=== PATIENT | male | born 1990 | race Two or more races ===

== ENCOUNTER 2021-12-30 11:46 | Emergency (ER) | payer OTHER, SELFPAY ==
--- NOTE | ~2021-12-30 | XR_ITS ---
EXAMINATION: [id number] EXAM DATE: 12/30/2021 12:20 INDICATION: No known recent injury provided at this time. Pain of the cervical spine. TECHNIQUE: Cervical spine frontal, lateral, lateral swimmers, and open-mouth odontoid projections. There is no prior study for comparison. FINDINGS: There is no evidence of acute cervical fracture. The odontoid process is intact. Pre-de ns space is normal. Prevertebral soft tissue is normal. There are no soft tissue abnormalities iden tified. There is mild disc disease at C5-6. There is mild cervical arthropathy. No significant steno sis suspected. The vertebral bodies are aligned. IMPRESSION: Mild cervical spondylosis. Reviewed, dictated and finalized at location A. IMPRESSION: Mild cervical spondylosis.
[2021-12-30 11:55] VITALS: BP 129/84; PULSE 78; RESP 16; TEMP 36.4; O2SAT 100
--- NOTE | 2021-12-30 11:59 | ED.GENADULT ---
HPI - General Adult General Chief complaint: Neck Pain/Injury Stated complaint: Neck pain Time Seen by Provider: 12/30/21 11:59 Source: patient Mode of arrival: ambulatory Limitations: no limitations History of Present Illness HPI narrative: 31 y/o male presented for c/o posterior neck pain for months. Pain radiates to right scapula or left at times. Worse after exercising, looking at his for phone a long time, or studying. 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 Denies pain radiating to bilateral arms/hands, numbness, tingling or weakness of the extremities. Endorses 2 hours of left middle finger tingling yesterday, and base of skull tingling at times. Has taken one dose of ibuprofen which helped the symptoms. He also changed out his mattress 3 times and bought new pillows. Related Data Allergies Allergy/AdvReac Type Severity Reaction Status Date / Time No Known Allergies Allergy Verified 12/30/21 12:01 Review of Systems Review of Systems: CONSTITUTIONAL: Denies body aches, fever, chills EYES: Denies visual changes ENT: Denies rhinorrhea, congestion CARDIOVASCULAR: Denies chest pain, palpitations, or edema. RESPIRATORY: Denies cough or dyspnea. GASTROINTESTINAL: Denies abdominal pain, nausea, vomiting, or diarrhea. SKIN: Denies rash, itching, or wounds. MUSCULOSKELETAL: Reports neck pain NEUROLOGIC: Denies headache, numbness, tingling, or weakness. PSYCH: Denies depression or anxiety. All systems reviewed & are unremarkable except as noted in HPI and below PMFSH Comments At time of signature, I have reviewed and agree with nursing past medical, surgical, social and family history unless otherwise noted. Please see nursing chart for further information. There is no relevant family history pertinent to the presenting complaint Exam Narrative: GENERAL: Well-appearing, well-nourished, and in no acute distress. HEAD: Normocephalic, atraumatic. EYES: conjunctivae clear NECK: Supple. CHEST: Speaks in full sentences. No respiratory distress. HEART: Regular rate and rhythm. Normal and equal peripheral pulses. EXTREMITIES: BUEs normal strength and sensation, normal range of motion with flexion/extension/rotation at shoulders. No vertebral point tenderness. No open wounds, skin tenting, or obvious deformity; pulses palpable and equal bilaterally, skin warm, dry, pink. Capillary refill less than 3 seconds. SKIN: Warm, dry, no rash. NEURO: Alert and oriented x3. PSYCH: Normal mood and affect Course Course Emergency Course: Patient is aware of diagnosis, understands and agrees to treatment plan. Anticipatory guidance given. Patient agrees to follow-up as directed and is aware of reasons to seek care at the emergency department. Portions of this record may have been created with voice recognition software Level of Care: Express Care Visit Vital Signs Vital signs: Vital Signs Temperature 97.6 F 12/30/21 11:55 Pulse Rate 78 12/30/21 11:55 Respiratory Rate 16 12/30/21 11:55 Blood Pressure 129/84 12/30/21 11:55 Pulse Oximetry 100 12/30/21 11:55 Temperature 97.6 F 12/30/21 11:55 Pulse Rate 78 12/30/21 11:55 Respiratory Rate 16 12/30/21 11:55 Blood Pressure 129/84 12/30/21 11:55 Pulse Oximetry 100 12/30/21 11:55 Reviewed Medical Decision Making MDM Narrative Medical decision making narrative: X-ray revealed mild cervical spondylosis, this is reviewed with patient. He is advised on supportive treatment, follow-up with PCP. He is appropriate for outpatient treatment and follow-up. Differential Diagnosis Differential Diagnosis: cervical strain, cervical radiculopathy, cervical spine fracture/dislocation/herniation Vital Signs Vital Signs: Vital Signs Temperature 97.6 F 12/30/21 11:55 Pulse Rate 78 12/30/21 11:55 Respiratory Rate 16 12/30/21 11:55 Blood Pressure 129/84 12/30/21 11:55 Pulse Oximetry 100 12/30/21 11:55 Temperature
== END 2021-12-30 12:36 | disposition home or self-care (01) ==
PROVIDERS: Emergency Provider Nurse Practitioner Family
DX: S16.1XXA Strain of muscle, fascia and tendon at neck level, initial encounter (principal); X58.XXXA Exposure to other specified factors, initial encounter
CPT/HCPCS: 72040; 99213; G0463